=== PATIENT | male | born 1990 | race Caucasian/White ===

== ENCOUNTER 2021-06-27 04:48 | Day surgery (SDC) | payer OTHER ==
[2021-06-24 16:58] VITALS: BMI 28.1
[2021-06-27] MEDS ORDERED: ROPIVACAINE HCL 0.5% 30ML VIAL ONE (08:06)
[2021-06-27] MEDS ORDERED: DEXAMETHASONE SOD PHOSPHATE 10 MG/1 ML VIAL ONE (08:06)
[2021-06-27] MEDS ORDERED: MIDAZOLAM HCL 2 MG/2 ML SINGLE DOSE VIAL ONE ×4 (08:08→09:52)
[2021-06-27] MEDS ORDERED: ceFAZolin SODIUM 1 GM VIAL IVPB ONE (09:41)
[2021-06-27] MEDS ORDERED: ONDANSETRON 4 MG/2 ML VIAL ONE (10:18)
[2021-06-27] MEDS ORDERED: LIDOCAINE HCL/PF 2% SDV 5ML VIAL ONE (10:18)
[2021-06-27] MEDS ORDERED: METOPROLOL TARTRATE 5 MG/5 ML VIAL ONE (10:18)
[2021-06-27] MEDS ORDERED: ceFAZolin SODIUM 1 GM VIAL ONE (10:18)
[2021-06-27] MEDS ORDERED: DEXAMETHASONE SOD PHOSPHATE 4 MG/1 ML VIAL ONE (10:18)
[2021-06-27] MEDS ORDERED: oxyCODONE HCL 5 MG TABLET PO PRN (10:52)
[2021-06-27] MEDS ORDERED: ONDANSETRON 4 MG/2 ML VIAL IVPUSH PRN (10:52)
[2021-06-27] MEDS ORDERED: LACTATED RINGERS SOLUTION 1,000 ML IV SCH (11:00)
[2021-06-27] MEDS ORDERED: PROPOFOL 20 ML ONE (11:02)
[2021-06-27 13:48] VITALS: TEMP 97.8
[2021-06-27 14:00] VITALS: BP 106/60; PULSE 58
== END 2021-06-27 14:10 | disposition home or self-care (01) ==
LOC: JASU-SURG 04:48
PROVIDERS: ATTEND Orthopaedic Surgery
PROC: 0RNK4ZZ Release Left Shoulder Joint, Percutaneous Endoscopic Approach (ICD-10-PCS; principal; 2021-06-27 09:00)
DX: M75.112 Incomplete rotator cuff tear or rupture of left shoulder, not specified as traumatic (principal)
CPT/HCPCS: 94760; J1100